=== PATIENT | female | born 1935 | race Caucasian/White ===

== ENCOUNTER 2017-03-27 14:28 | Outpatient (CLI) | payer OTHER | END 2017-03-27 14:30 | LOC: NEPHRO 14:28 | PROVIDERS: ATTEND Internal Medicine Nephrology | DX: N18.9 Chronic kidney disease, unspecified (principal); I10 Essential (primary) hypertension; I25.10 Atherosclerotic heart disease of native coronary artery without angina pectoris; J44.9 Chronic obstructive pulmonary disease, unspecified | CPT/HCPCS: G0463 ==

== ENCOUNTER 2017-04-17 14:16 | Outpatient (CLI) | payer OTHER | END 2017-04-17 14:17 | LOC: CARD 14:16 | PROVIDERS: ATTEND Internal Medicine Cardiovascular Disease | DX: I25.10 Atherosclerotic heart disease of native coronary artery without angina pectoris (principal); Z98.61 Coronary angioplasty status; I10 Essential (primary) hypertension; E11.9 Type 2 diabetes mellitus without complications; N18.4 Chronic kidney disease, stage 4 (severe); J44.9 Chronic obstructive pulmonary disease, unspecified; F17.210 Nicotine dependence, cigarettes, uncomplicated | CPT/HCPCS: G0463 ==

== ENCOUNTER 2018-04-16 11:13 | Outpatient (CLI) | payer OTHER ==
[2018-04-16 23:25] VITALS: BP 187/90
== END 2018-04-16 11:18 ==
LOC: CARD 11:13
PROVIDERS: ATTEND Internal Medicine Cardiovascular Disease
DX: I25.10 Atherosclerotic heart disease of native coronary artery without angina pectoris (principal); I42.9 Cardiomyopathy, unspecified; I10 Essential (primary) hypertension; E11.9 Type 2 diabetes mellitus without complications; N18.4 Chronic kidney disease, stage 4 (severe); Z72.0 Tobacco use
CPT/HCPCS: G0463

== ENCOUNTER 2018-04-16 20:04 | Emergency (ER) | payer OTHER ==
--- NOTE | 2018-04-16 20:07 | ED Physician Documentation ---
General Adult - HISTORIAN Historian: patient - HPI Stated Complaint: abd pain, diarrhea, vomiting Chief Complaint: General Adult Onset: days ago (1) Timing: still present Severity: moderate Further Comments: yes (Pt is an 83 yo female with diarrhea x 1 week, and with n/ v. Pt states that she lost 10 lbs over the past 3 months. Pt notes eating some artificial frozen crab meat just prior to when the diarrhea started. Pain is generlized across mid abdomen. Pt has hx PA with stents 2001, and sees Dr. Bose.) - ROS CONST: other (malaise) EYES/ENT: none CVS/RESP: none GI/: abdominal pain, vomiting, nausea, diarrhea MS/SKIN/LYMPH: none - PAST HX Past History: other (DM, HLD, HTN, PA 2001.) Surgeries/Procedures: cardiac stent Allergies/Adverse Reactions: Allergies Allergy/AdvReac Type Severity Reaction Status Date / Time No Known Drug Allergies Allergy Verified 04/16/18 20:15 Home Medications: Ambulatory Orders Medication Instructions Recorded Aspirin [Aspir-Low] 81 mg PO DAILY u2 05/27/13 Cholecalciferol [Vitamin D] 1,000 unit PO DAILY u2 05/27/13 Cyanocobalamin (Vitamin B-12) 500 mcg PO DAILY u2 05/27/13 [Vitamin B-12] Glipizide [Glipizide] 7.5 mg PO PRN PRN u2 05/27/13 [place]-3 Fatty Acids/Fish Oil [Fish 1 each PO DAILY av 05/27/13 Oil 1,000 Mg Softgel] Simvastatin 80 mg PO QOD u2 05/27/13 Clonidine HCl [Catapres] 0.3 mg PO BID u2 06/03/13 Furosemide [Lasix] 1 tab PO [id number] 04/16/18 - SOCIAL HX Smoking History: cigarettes - FAMILY HX Family History: No (unk) - REVIEWED ASSESSMENTS Nursing Assessment Reviewed: Yes Vitals Reviewed: Yes Progress - Progress Progress: CXR: Cardiac size upper limits of normal. Aortic calcification is present. Bibasilar opacities are present, right greater than left. No obvious pleural effusion is identified. Interstitial prominence is seen. Multilevel thoracic spine degenerative changes are present Impression: 1. Right basilar infiltrate/atelectasis. Minimal left basilar atelectasis. KUB: There is paucity of bowel gas. No obvious evidence of bowel obstruction. Curvilinear calcification is noted in the left upper abdomen, the differential diagnoses includes vascular calcification/ less likely postsurgical change or chronic pancreatitis. Pelvic calcification is noted this may be due to pelvic phleboliths versus uterine calcified fibroids. Multilevel degenerative changes are seen in the lumbar spine Impression: 1. Paucity of bowel gas. No obvious evidence of bowel obstruction. NS 1 L IVF Zofran 4 mg IV clonidine 0.2 mg po pepcid 20 mg IV insulin 6 unit sq lasix 20 mg IV Pt had episode of bradycardia with HR=38. Episode lasted 1 min, pt was likely vomiting during episode. Pt had 2nd episode of bradycardia with HR in 30's lasting 1 min. Pt was not vomiting during this episode. transfer to [facility] cardiology, Dr. Barron. General Adult Physical Exam - PHYSICAL EXAM GENERAL APPEARANCE: moderate distress EENT: pharynx normal NECK: normal inspection, supple RESPIRATORY: no resp distress, chest non-tender, rales CVS: reg rate & rhythm, heart sounds normal ABDOMEN: soft, tenderness (diffuse mid-abd tenderness), decreased BS BACK: normal inspection, no CVA tenderness SKIN: warm/dry, normal color EXTREMITIES: non-tender, normal range of motion, no evidence of injury NEURO: oriented X3, motor nml, sensation nml Discharge Clincal Impression: Abd pain, nausea/vomiting, recent diarrhea, elevated troponin, dehydration, CHF , RLL pneumonia vs atelectasis, DM, hyperglycemia, r/o PA Referrals: Katie Casillas MD [Primary Care Provider] - Condition: Stable Disposition: [facility]FER [facility] Decision to Admit: NO Decision Time: 23:08
[2018-04-16] MEDS ORDERED: 0.9 % SODIUM CHLORIDE 500 ML IV ONE (20:08)
[2018-04-16] MEDS ORDERED: ONDANSETRON HCL/PF 4 MG/ 2ML VIAL ONE (20:19)
[2018-04-16 20:20] LABS: BASOPHILS % 0.1 (0.0-1.5); EOSINOPHILS % 1.8 % (0.0-6.8); MEAN CORPUSCULAR HEMOGLOBIN 31.5 pg (28.0-34.0); MEAN CORPUSCULAR VOLUME 92.6 fl (80.0-100.0); MONOCYTES % 2.7 % (0.0-11.0)
[2018-04-16] MEDS ORDERED: ONDANSETRON HCL 4 MG TAB.RAPDIS PO ONE (20:20)
[2018-04-16] MEDS ORDERED: CloNIDine HCL 0.1 MG TABLET PO ONE (21:21)
[2018-04-16] MEDS ORDERED: FAMOTIDINE/PF 20 MG/2 ML VIAL IVP ONE (21:22)
[2018-04-16] MEDS ORDERED: INSULIN REGULAR, HUMAN 100 UNIT/ML 3ML VIAL SQ ONE (21:22)
[2018-04-16] MEDS ORDERED: FUROSEMIDE 20 MG/2 ML VIAL IVP ONE (21:39)
[2018-04-16] MEDS ORDERED: ONDANSETRON HCL/PF 4 MG/ 2ML VIAL IVP ONE (21:41)
[2018-04-16 23:25] VITALS: BP 187/90
--- NOTE | 2018-04-17 05:57 | Diagnostic Imaging Report ---
ELEUTERIO GRACE [facility] [address] [facility] [address] [place], [place]. [address] Report Submission Date: Apr 16, 2018 8:59:17 PM CDT Patient Study Name: DUKE SERRATO Date: Apr 16, 2018 8:33:26 PM CDT Modality Type: DX Gender: F Description: ABDOMEN : 33 Institution: [facility] Physician: ELEUTERIO GRACE 2 views of the abdomen History: COUGH, ABD PAIN, PT STATES SHE IS A SMOKER (Hx) / ITS.REASON abd pain, cough ----- No prior comparison studies are available There is paucity of bowel gas. No obvious evidence of bowel obstruction. Curvilinear calcification is noted in the left upper abdomen, the differential diagnoses includes vascular calcification/ less likely postsurgical change or chronic pancreatitis. Pelvic calcification is noted this may be due to pelvic phleboliths versus uterine calcified fibroids. Multilevel degenerative changes are seen in the lumbar spine Impression: 1. Paucity of bowel gas. No obvious evidence of bowel obstruction. Electronically signed on Apr 16, 2018 8:59:17 PM CDT by: Keiko MINER
--- NOTE | 2018-04-17 05:58 | Diagnostic Imaging Report ---
ELEUTERIO GRACE [facility] [place] [facility] [address] [facility] [address] [place] [id number]. [id number] Report Submission Date: Apr 16, 2018 8:55:58 PM CDT Patient Study Name: DUKE SERRATO Date: Apr 16, 2018 8:27:21 PM CDT Modality Type: DX Gender: F Description: CHEST : 33 Institution: [facility] [place] [facility] Physician: ELEUTERIO GRACE Single frontal view of the chest History: COUGH, ABD PAIN, PT STATES SHE IS A SMOKER (Hx) / ITS.REASON abd pain, cough No comparison studies Cardiac size upper limits of normal. Aortic calcification is present. Bibasilar opacities are present, right greater than left. No obvious pleural effusion is identified. Interstitial prominence is seen. Multilevel thoracic spine degenerative changes are present Impression: 1. Right basilar infiltrate/atelectasis. Minimal left basilar atelectasis. Electronically signed on Apr 16, 2018 8:55:58 PM CDT by: Keiko MINER
[2018-04-17 06:34] LABS: APPEARANCE,URINE CLEAR (CLEAR); COLOR,URINE YELLOW (YELLOW); OCCULT BLOOD,URINE 1+ (NEGATIVE); UROBILINOGEN URINE 0.2 Eu (0.2-1.0)
== END 2018-04-16 23:40 | disposition short-term general hospital (02) ==
LOC: ED 20:04
DX: R10.9 Unspecified abdominal pain (principal); R11.2 Nausea with vomiting, unspecified; R19.7 Diarrhea, unspecified; R79.89 Other specified abnormal findings of blood chemistry; E86.0 Dehydration; I50.9 Heart failure, unspecified; E11.9 Type 2 diabetes mellitus without complications; R73.9 Hyperglycemia, unspecified
CPT/HCPCS: 71045; 74018; 80053; 81002; 82550; 82553; 83690; 83880; 84484; 85025; J1815; J1940; J2405; J7060; 96360; 96372; 96375; S0028